=== PATIENT | female | born 1945 | race Caucasian/White ===

== ENCOUNTER → 2022-12-26 | Outpatient (CLI) | payer MEDICARE, OTHER ==
--- NOTE | 2022-12-26 14:36 | US ---
EXAMINATION TYPE: US thyroid st tissue head/neck DATE OF EXAM: 12/26/2022 COMPARISON: CT cervical spine 2016 CLINICAL INDICATION: Female, 77 years old with history of E04.1 NONTOXIC SINGLE THYROID NODULE; Adam e. Patient states she had a biopsy on the left side a long time ago. GLAND SIZE: Right Lobe: 4.8 x 1.5 x 1.4 cm Overall Parenchyma: heterogenous Left Lobe: 6.9 x 4.3 x 3.4 cm Overall Parenchyma: heterogenous Isthmus Thickness: 0.2 cm NODULES RIGHT: # of nodules measured on right: 1, Additional <5 mm nodule noted. 1. 0.7 X 0.5 x 0.4 cm, mid mid, mixed cystic and solid, anechoic nodule, which is wider than tall, with smooth margins, with echogenic foci. Prior size: No prior LEFT: # of nodules measured on left: 1 1. 5.4 X 4.1 x 3.1 cm, mid mid, solid or almost completely solid, isoechoic nodule, which is wider than tall, with ill-defined margins, without echogenic foci. Prior size: no prior *Appears to take up most of the left thyroid lobe. ISTHMUS: # of nodules measured in the isthmus: 0 Bilateral neck scanned, no evidence of lymphadenopathy. Heterogeneous thyroid gland with asymmetric left thyroid enlargement IMPRESSION: Imaging guided sampling dominant left thyroid nodule. 2017 ACR TI-RADS LEVEL: TR-RADS 3 - Mildly Suspicious: Follow if > 1.5 cm, FNA if > 2.5 cm *Highest TI-RADS level nodule reported
== END | disposition home or self-care (01) ==
LOC: RADUSWWP 13:54
PROVIDERS: ATTEND Family Medicine
DX: E04.1 Nontoxic single thyroid nodule (principal)
CPT/HCPCS: 76536

== ENCOUNTER → 2023-10-12 | Outpatient (CLI) | payer MEDICARE ==
--- NOTE | 2023-10-14 09:18 | MM ---
Reason for Exam: Screening (asymptomatic). Last mammogram was performed 9 year(s) and 6 month(s) ago. Patient History: Menarche at age 14. First Full-Term at age 21. Postmenopausal. Risk Values: Rossana 5 year model risk: 1.3%. NCI Lifetime model risk: 2.8%. Prior Study Comparison: 09/10/2011 Bilateral Screening Mammogram, [facility]. 04/24/2014 Bilateral Screening Mammogram, [facility]. Tissue Density: The breasts are heterogeneously dense, which may obscure small masses. Findings: Analyzed By CAD. Grouped calcifications left breast posterior depth CC view 7.4 cm from the nipple. Benign-appearing calcification bilaterally. No masses. Right breast biopsy clip. Overall Assessment: Incomplete: need additional imaging evaluation, BI-RAD 0 Management: Diagnostic Mammogram of both breasts. [facility] will attempt to contact patient to return for supplemental views and ultrasound if indicated. Patient should continue monthly self-breast exams. A clinical breast exam by your physician is recommended on an annual basis. This exam should not preclude additional follow-up of suspicious palpable abnormalities. Note on Rossana scores and lifetime risk: 1. A Rossana score greater than 3% is considered moderate risk. If this is the case, consider specialist referral to assess eligibility for a risk reducing agent. 2. If overall lifetime risk for the development of breast cancer is 20% or higher, the patient may qualify for future screening with alternating mammogram and breast MRI. Electronically signed and approved by: Sedrick Martin DO
== END | disposition home or self-care (01) ==
LOC: RADMAMWWP 12:08
PROVIDERS: ATTEND Family Medicine
DX: Z12.31 Encounter for screening mammogram for malignant neoplasm of breast (principal); Z78.0 Asymptomatic menopausal state
CPT/HCPCS: 77063; 77067

== ENCOUNTER → 2023-10-20 | Outpatient (CLI) | payer MEDICARE ==
--- NOTE | 2023-10-20 19:50 | MM ---
Reason for Exam: Additional evaluation requested from abnormal screening. Last screening mammogram was performed less than 1 month ago. Patient History: Menarche at age 14. First Full-Term at age 21. Postmenopausal. Risk Values: Rossana 5 year model risk: 1.3%. NCI Lifetime model risk: 2.8%. Prior Study Comparison: 09/10/2011 Bilateral Screening Mammogram, [facility]. 04/24/2014 Bilateral Screening Mammogram, [facility]. 10/12/2023 Bilateral MG 3D screening mammo w/cad, [facility]. Tissue Density: Left: There are scattered areas of fibroglandular density. Findings: Analyzed By CAD. The pattern is symmetrical. There is interval development of round calcifications. Prior examination is from 2013 and no interval imaging is available. Recommend short-term follow-up to reevaluate calcifications in 6 months. Prior core marker is within the right breast. No suspicious groups of microcalcifications, spiculated or lobular masses, architectural distortion or other secondary signs of malignancy are mammographically apparent. Overall Assessment: Probably benign, BI-RAD 3 Management: Diagnostic Mammogram of the left breast in 6 months. A negative mammogram report should not preclude additional follow up of suspicious palpable abnormalities. Patient should continue monthly self breast exam. A clinical breast exam by your physician is recommended on an annual basis and results should be correlated with mammographic findings. Electronically signed and approved by: Deondre Segal D.O. Radiologis
== END | disposition home or self-care (01) ==
LOC: RADMAMWWP 13:58
PROVIDERS: ATTEND Family Medicine
DX: R92.322 Mammographic fibroglandular density, left breast (principal); R92.1 Mammographic calcification found on diagnostic imaging of breast; Z78.0 Asymptomatic menopausal state
CPT/HCPCS: 77065; G0279; 77061

== ENCOUNTER → 2024-05-03 | Outpatient (CLI) | payer MEDICARE ==
--- NOTE | 2024-05-03 10:04 | MM ---
Reason for Exam: Follow-up at short interval from prior study. Last screening mammogram was performed 7 month(s) ago. Patient History: Menarche at age 14. First Full-Term at age 21. Postmenopausal. Risk Values: Rossana 5 year model risk: 1.3%. NCI Lifetime model risk: 2.6%. Prior Study Comparison: 04/24/2014 Bilateral Screening Mammogram, [facility]. 10/12/2023 Bilateral MG 3D screening mammo w/cad, [facility]. 10/20/2023 Left MG 3D work up w/cad , [facility]. Tissue Density: Left: The breasts are heterogeneously dense, which may obscure small masses. Findings: Analyzed By CAD. Stable benign calcifications. 1.5 cm nodule left breast 11:00 position 4.5 cm from the nipple. Ultrasound recommended. Overall Assessment: Incomplete: need additional imaging evaluation, BI-RAD 0 Management: Diagnostic Breast Ultrasound of the left breast. . Results were given to the patient verbally at the time of exam. Patient should continue monthly self-breast exams. A clinical breast exam by your physician is recommended on an annual basis. This exam should not preclude additional follow-up of suspicious palpable abnormalities. Note on Rossana scores and lifetime risk: 1. A Rossana score greater than 3% is considered moderate risk. If this is the case, consider specialist referral to assess eligibility for a risk reducing agent. 2. If overall lifetime risk for the development of breast cancer is 20% or higher, the patient may qualify for future screening with alternating mammogram and breast MRI. [facility], , 05/03/2024 10:01 AM. Electronically signed and approved by: Girma Shay M.D. Radiologis
== END | disposition home or self-care (01) ==
LOC: RADMAMWWP 09:41
PROVIDERS: ATTEND Family Medicine
DX: R92.8 Other abnormal and inconclusive findings on diagnostic imaging of breast
CPT/HCPCS: 77061; 77065

== ENCOUNTER 2024-05-12 12:34 | Day surgery (SDC) | payer MEDICARE ==
--- NOTE | 2024-05-03 10:34 | USB ---
Reason for Exam: Additional evaluation requested from abnormal screening. Patient History: Menarche at age 14. First Full-Term at age 21. Postmenopausal. Risk Values: Rossana 5 year model risk: 1.3%. NCI Lifetime model risk: 2.6%. Technique: Method: Targeted. Prior Study Comparison: 04/24/2014 Bilateral Screening Mammogram, [facility]. 10/12/2023 Bilateral MG 3D screening mammo w/cad, [facility]. 10/20/2023 Left MG 3D work up w/cad , [facility]. Findings: The upper inner quadrant of the left breast, the axilla of the left breast and the retroareolar of the left breast were scanned. Cyst cluster noted at the left 11:00 position 5 cm from the nipple measuring 1.7 cm. No solid masses seen. Overall Assessment: Benign, BI-RAD 2 Management: Screening Mammogram of both breasts in 6 months. A clinical breast exam by your physician is recommended on an annual basis and results should be correlated with mammographic findings. This exam should not preclude additional follow-up of suspicious palpable abnormalities. Results were given to the patient verbally at the time of exam. [facility], , 05/03/2024 10:12 AM. Electronically signed and approved by: Girma hSay M.D. Radiologis
[2024-05-12 13:07] VITALS: BP 136/78; PULSE 78; RESP 12; TEMP 94.7
[2024-05-12] MEDS: ALPRAZolam 0.25 MG TAB PO STA (13:09)
--- NOTE | 2024-05-12 14:56 | US ---
ULTRASOUND GUIDED FNA THYROID BIOPSY: CLINICAL HISTORY: Left thyroid nodule FINDINGS: The procedure was explained to the patient. The risks, complications, benefits and alternatives were discussed and any questions were answered. Informed consent was obtained. Patient was placed supin e on the ultrasound table and prepped and draped in the usual sterile fashion. Utilizing a 25 gauge needle, five passes were made into the requested left thyroid nodule. Patient was stable throughout the procedure. Pathology is pending. All elements of maximal barrier technique were utilized. IMPRESSION: 1. Successful ultrasound guided FNA thyroid biopsy. [facility], , 05/12/2024 2:16 PM
== END 2024-05-12 14:15 | disposition home or self-care (01) ==
LOC: RADPROMAIN 12:34
PROVIDERS: ATTEND Radiology Diagnostic Radiology
DX: E04.1 Nontoxic single thyroid nodule (principal)
CPT/HCPCS: 10005; 88173; 88305

== ENCOUNTER → 2024-11-15 | Outpatient (CLI) | payer MEDICARE ==
--- NOTE | 2024-11-15 10:19 | CT ---
EXAMINATION TYPE: CT heart w calcium score DATE OF EXAM: 11/15/2024 COMPARISON: None CLINICAL INDICATION: Female, 78 years old with history of Z91.89 PERSONAL RISK FACTORS; PHH, calcium scoring screening. pt states no family hx TECHNIQUE: Prospective Gating was used. Slice thickness: 3mm. Density threshold (HU): 130, Pixel threshold: 3, Algorithm: discrete. CT DLP: 150.[address] CTDI: mGy Automated exposure control for dose reduction was used. FINDINGS: CT CALCIUM SCORING Coronary calcium is a marker for plaque (fatty deposits) in a blood vessel or atherosclerosis (harden ing of the arteries). The presence and amount of calcium detected in a coronary artery by the CT sca n, indicates the presence and amount of atherosclerotic plaque. These calcium deposits appear years before the development of heart disease symptoms such as chest pain and shortness of breath. A calcium score is computed for each of the coronary arteries based upon the volume and density of th e calcium deposits. This can be referred to as your calcified plaque burden. It does not correspond directly to the percentage of narrowing in the artery but does correlate with the severity of the un derlying coronary atherosclerosis. RESULTS Region: LM Calcium Score ([place]): 1.53 Volume (mm3): 4.58 Mass (g): 1.53 Region: RCA Calcium Score ([place]): 0 Volume (mm3): 0 Mass (g): 0 Region: LAD Calcium Score ([place]): 216.13 Volume (mm3): 181.23 Mass (g): 60.41 Region: CX Calcium Score ([place]): 0 Volume (mm3): 0 Mass (g): 0 Region: PDA Calcium Score ([place]): 0 Volume (mm3): 0 Mass (g): 0 Total: Calcium Score ([place]): 217.66 Volume (mm3): 185.81 Mass (g): 61.94 TOTAL CALCIUM SCORE: 217.66 Elevated left diaphragm. Atherosclerosis of the arterial vasculature. There is stomach and the elevat ed left diaphragm. Right upper lobe pulmonary nodule measuring 9 mm series 4 image 22. As well as more medial measuring 4 mm series 4 image 5 IMPRESSION: 1. Calcium Score: 101-400; Implication: Definite, at least moderate atherosclerotic plaque. Risk of Coronary Artery Disease: Mild coronary artery disease highly likely, significant narrowings p ossible 2. 2 pulmonary nodules including a 9 mm right upper lobe pulmonary nodule concerning for malignancy u ntil proven otherwise. Further evaluation with dedicated CT chest recommended and eventually pet/CT a nd/or three-month follow-up. CALCIUM SCORE IMPLICATION RISK OF C ORONARY ARTERY DISEASE 0 No identifiable plaque Very low, generally less than 5% 1-10 Minimal identifiable plaque Very unlikely, less than 10% 11-100 Definite, at least mild atherosclerotic plaque Mild or m inimal coronary narrowings likely 101-400 Definite, at least moderate atherosclerotic plaque Mild coronary ar thierry disease highly likely, significant narrowing possible 401 or Higher Extensive atherosclerotic plaque High lik elihood of at least one significant coronary narrowing [facility], , 11/15/2024 10:16 AM
== END | disposition home or self-care (01) ==
LOC: RADCTMAIN 09:36
PROVIDERS: ATTEND Family Medicine
DX: I70.90 Unspecified atherosclerosis (principal); Z91.89 Other specified personal risk factors, not elsewhere classified; R91.8 Other nonspecific abnormal finding of lung field
CPT/HCPCS: 75571

== ENCOUNTER 2025-02-01 05:43 | Day surgery (SDC) | payer MEDICARE ==
[2025-02-01] MEDS ORDERED: ALPRAZolam 0.25 MG TAB PO PRN (05:57)
[2025-02-01] MEDS ORDERED: ALPRAZolam 0.5 MG TAB PO PRN (05:57)
[2025-02-01] MEDS ORDERED: NITROGLYCERIN SL TABS 0.4 MG TAB SUBLINGUAL PRN (05:57)
[2025-02-01 06:33] VITALS: RESP 18; TEMP 98.7
[2025-02-01] MEDS: SODIUM CHLORIDE 0.9% 1,000 ML in EMPTY BAG 1 BAG IV SCH (06:34)
[2025-02-01] MEDS: ATORVASTATIN 80 MG TAB PO STA (06:35)
[2025-02-01] MEDS: IV FLUID CONTINUATION 1,000 ML IV ONE (06:35)
[2025-02-01] MEDS: ASPIRIN 325 MG TAB PO STA (06:35)
[2025-02-01] MEDS: fentaNYL (PF) 50 MCG/1 ML VIAL IVP ONE (07:34)
[2025-02-01] MEDS: LIDOCAINE 1% INJ 10MG/ML (20 ML MDV) SQ ONE (07:36)
[2025-02-01] MEDS: MIDAZOLAM 2 MG/2 ML VIAL IVP ONE (07:37)
[2025-02-01] MEDS: VERAPAMIL SYRINGE (5 MG/10 ML) INTRAARTER ONE (07:38)
[2025-02-01] MEDS: HEPARIN SODIUM 1,000 UN/ML (10ML VL) IVP ONE (07:40)
[2025-02-01] MEDS: HEPARIN SODIUM,PORCINE (1 ML) 2,500 UNIT in SODIUM CHLORIDE 0.9% 250 ML IRRIGATION PRN (07:44)
[2025-02-01] MEDS: HEPARIN SODIUM,PORCINE 10,000 UNIT in SODIUM CHLORIDE 0.9% 1,000 ML IRRIGATION PRN (07:44)
[2025-02-01] MEDS: IOPAMIDOL-370 100ML BTL INJ ONE (07:51)
[2025-02-01] MEDS ORDERED: RX INFO: IV CONTRAST WAS GIVEN 1 EACH MISC MISCELLANE PRN (08:03)
--- NOTE | 2025-02-01 08:08 | P.CARDCATH ---
Date of Procedure: 02/01/25 Description of Procedure: Cardiac Catheterization: The patient is a 79-year-old female with a known history of CAD by coronary calcium score, history of hypertension and hyperlipidemia who has been complaining of symptoms of dyspnea and had an abnormal MPI. The recommendations were made regarding cardiac catheterization, the risks and the complications were discussed with the patient who is in full understanding and agreement. Procedure Description: Patient was brought to collaborative teacher in fasting semi-sedated state after receiving Fentanyl and Benadryl achieiving moderate conscious sedated state. Using Xylocaine Anesthesia and modified Seldinger technique, a 6-Bermudian sheath was introduced in the right radial artery . Subsequently, selective coronary angiography was performed using a 5-Bermudian 3.5 bend Hakeem catheter. Multiple views of the coronary artery including hemiaxial views were obtained. The 5 [place] pigtail catheter was used to cross the aortic valve and LVEDP was calculated. Following that, catheter and sheath were removed. Hemostasis was obtained with deployment of vascular band . There was no immediate complication. Patient was returned to room in stable condition. Of note, the patient received a total of 4500 units of intravenous heparin as well as intra-arterial verapamil. Findings: Fluoroscopy: Calcifications of the LAD was noted Left main: This is a large sized vessel, bifurcating into LAD and left circumflex, the left main has no obstructive disease LAD: This is a large size vessel, reaching to the apex with a wraparound apex segment, giving rise to 2 small to moderate diagonal branch. The LAD proximally has a 10% plaque, the rest of the vessel has no high-grade stenosis. Left circumflex: This is a nondominant vessel, large in caliber, giving rise to 2 large obtuse marginal branch that have no evidence of obstructive disease RCA: This is a moderately sized vessel dominant bifurcating distally to PDA and PLV, the right coronary artery and its branches have no obstructive disease Left Ventriculogram: Not performed Hemodynamics: There was no gradient across aortic valve, LVEDP was 14-16 mmHg Conclusion: 1. Calcified LAD 2. Mild plaque in the proximal LAD 3. Right dominance 4. Normal LVEDP Recommendations: I have recommended to continue medical therapy with the aggressive coronary risks modification, her dyspnea on exertion does not appear to be cardiac in etiology. The findings and the recommendations were discussed with the patient and the family and they were in full understanding and agreement. Duration of sedation is 14 minutes.
[2025-02-01] MEDS ORDERED: SODIUM CHLORIDE 0.9% 1,000 ML IV SCH (08:15)
[2025-02-01 11:11] VITALS: BP 131/89; PULSE 89
[2025-02-02] MEDS ORDERED: ATORVASTATIN 40 MG TAB PO SCH (09:00)
[2025-02-02] MEDS ORDERED: LOSARTAN-HCTZ 50-12.5 MG 1 EACH TAB PO SCH (09:00)
[2025-02-02] MEDS ORDERED: ASPIRIN 81 MG PO SCH (09:00)
== END 2025-02-01 11:10 | disposition home or self-care (01) ==
LOC: CATHCVL 05:43
PROVIDERS: ATTEND Internal Medicine Interventional Cardiology
DX: I25.10 Atherosclerotic heart disease of native coronary artery without angina pectoris (principal); I10 Essential (primary) hypertension; E78.2 Mixed hyperlipidemia; Z72.0 Tobacco use; Z79.899 Other long term (current) drug therapy
CPT/HCPCS: 93458; 99152; J2250; J1644 ×3; J2003; Q9967; J3010